=== PATIENT | male | born 1935 | race Caucasian/White ===

== ENCOUNTER → 2017-09-30 | Outpatient (CLI) | payer MEDICARE, OTHER | LOC: GMAM 11:46 | PROVIDERS: ATTEND Family Medicine | DX: Z12.5 Encounter for screening for malignant neoplasm of prostate (principal) ==

== ENCOUNTER → 2018-04-29 | Outpatient (CLI) | payer MEDICARE, OTHER | LOC: GMAM 14:38 | PROVIDERS: ATTEND Family Medicine | DX: R61 Generalized hyperhidrosis (principal); R53.82 Chronic fatigue, unspecified; E55.9 Vitamin D deficiency, unspecified ==

== ENCOUNTER → 2019-06-17 | Outpatient (CLI) | payer MEDICARE, OTHER | LOC: GMAM 11:05 | PROVIDERS: ATTEND Family Medicine | DX: E55.9 Vitamin D deficiency, unspecified (principal); I10 Essential (primary) hypertension; E11.9 Type 2 diabetes mellitus without complications ==

== ENCOUNTER → 2020-02-18 | Outpatient (CLI) | payer MEDICARE, OTHER | LOC: GMAM 10:24 | PROVIDERS: ATTEND Family Medicine | DX: Z12.5 Encounter for screening for malignant neoplasm of prostate (principal); E55.9 Vitamin D deficiency, unspecified; E78.2 Mixed hyperlipidemia; I10 Essential (primary) hypertension | CPT/HCPCS: 82306; G0103 ==

== ENCOUNTER → 2020-04-22 | Outpatient (CLI) | payer MEDICARE, OTHER | LOC: GMAM 10:47 | PROVIDERS: ATTEND Family Medicine | DX: R07.1 Chest pain on breathing (principal); I10 Essential (primary) hypertension ==

== ENCOUNTER → 2020-04-27 | Outpatient (CLI) | payer MEDICARE, OTHER | LOC: GMAM 14:27 | PROVIDERS: ATTEND Family Medicine | DX: I50.32 Chronic diastolic (congestive) heart failure (principal); R06.02 Shortness of breath ==

== ENCOUNTER 2020-05-05 15:26 | Observation (INO) | payer MEDICARE, OTHER ==
--- NOTE | 2020-05-05 15:30 | HP ---
SUPERVISING PHYSICIAN: Ga Dudley MD CHIEF COMPLAINT: Shortness of breath. HISTORY OF PRESENT ILLNESS: Mr. Patel is an 84-year-old male patient who has a history of congestive heart failure, type 2 diabetes mellitus, hypertension. He had been seen initially in the clinic on 04/23/[address] Dudley for some shortness of breath. He was worked up and started on cefdinir and given a shot of Rocephin for suspected pneumonia because he had a fever and also he saw a pleural effusion on x-ray and was diagnosed with new onset of atrial fibrillation and started on Eliquis. He was followed up on 04/27/20 and was feeling a little bit better after finishing his medications. He was still having some chest tightness, but no real bad shortness of breath. At that time, another x-ray was done and showed a pleural effusion on the left. He was then seen again on 04/29/20 for continued followup. His saturations were showing mid 90s on room air. His labs were fairly unremarkable. He was scheduled for echocardiogram and CT of the chest on 05/05/20. After he had the CT of the chest done, it was noted that he had a 40% left hydropneumothorax. At that point, Dr. Dudley notified the patient that he needed to be admitted for possible chest tube placement and at least evaluation overnight with some monitor to see if the pneumothorax would resolve. He was not in any distress at time of admission, having no chest pains, therefore, he was was placed in observation. He was placed in observation in the hospital in stable condition. PAST MEDICAL HISTORY: 1. Hyperlipidemia. 2. Prostate cancer. 3. Gastroesophageal reflux disease without esophagitis. 4. Chronic diastolic heart failure. 5. Type 2 diabetes mellitus. 6. Coronary artery disease. 7. Generalized anxiety disorder. 8. New onset of atrial fibrillation on Eliquis and metoprolol. PAST SURGICAL HISTORY: 1. Tonsillectomy. 2. Right total knee replacement. 3. Fractured mandible at age 40 requiring plates. HOME MEDICATIONS: 1. Sertraline 50 mg at bedtime. 2. Rosuvastatin 10 mg daily. 3. Potassium chloride 10 mEq daily. 4. Metoprolol succinate extended release 25 mg b.i.d. 5. Losartan 100 mg daily. 6. Lasix 40 mg daily. 7. Chlorthalidone 25 mg daily. 8. Eliquis 2.5 mg b.i.d. 9. Amlodipine 10 mg daily. ALLERGIES: NO KNOWN DRUG ALLERGIES. FAMILY HISTORY: Father at age 80 due to cerebrovascular accident. Mother at age 80 of natural causes. He has one sister who is and had history of arrhythmias who in her 70s with coronary artery disease. He has two sons who are healthy. SOCIAL HISTORY: The patient is employed at [employer]. He is . He has two children. He has a remote history of tobacco use in the form of smoking. He quit many years previously. He drinks on a rare occasion. REVIEW OF SYSTEMS: CONSTITUTIONAL: Denies any fevers, chills, general malaise, weakness or unexplained weight loss. HEENT: Denies headaches, vision changes, sore throats, earaches, nasal congestion. RESPIRATORY: As noted in history of present illness, some shortness of breath, a little bit of mild cough. CARDIOVASCULAR: Denies chest pain, palpitations or syncopal episodes. New onset of atrial fibrillation noted. No reported palpitations. GASTROINTESTINAL: Denies nausea, vomiting, diarrhea, constipation or abdominal pain. GENITOURINARY: Denies dysuria, hematuria, polyuria. MUSCULOSKELETAL: Denies any joint swelling, neck pain, back pain or arthralgias. SKIN: Denies lesions, rashes, moles or unexplained changes. NEUROLOGIC: Denies any ataxia, seizures, vision changes, headaches or other neuromotor focal deficits. HEMATOLOGIC: Denies unexplained bleeding, bruising or transfusion reactions. PHYSICAL EXAMINATION: VITAL SIGNS: Admission vital signs showed temperature 97.5, pulse 86, blood pressure 165/89, respirations 16, saturation 99% on 6 liters nasal cannula. Saturation 96% on room air. GENERAL: The patient is resting comfortably, not in any distress. He does have some pain when he takes a deep breath or coughs on the left side, but no active chest pain at rest. He is alert. HEENT: Tympanic membranes clear bilaterally. Oropharynx is pink, moist without any lesions. NECK: Supple, nontender with full range of motion. No jugular venous distention noted. RESPIRATORY: Right side lung sounds are fairly clear with no obvious rhonchi, wheezes or rales. Left side does have absent breath sounds in the lower bases, but he does have equal excursion of chest wall. No crepitus, no rhonchi. CARDIOVASCULAR: Slightly irregular rate and rhythm without any appreciable murmurs, gallops, or rubs. ABDOMEN: Soft, nontender. Positive bowel sounds. EXTREMITIES: There is no cyanosis, clubbing or edema. RECTAL: Deferred. BACK: No CVA tenderness, no vertebral tenderness. NEUROLOGIC: Cranial nerves II-XII are grossly intact. The patient is alert and oriented times three. SKIN: Warm, pink and dry. LABORATORY: White count 7,400, hemoglobin 11.4, hematocrit 34.3, platelet count 286,000. Differential is without a left shift. Coagulation studies showed PT 11, INR 1.11, PT 30.1. Chemistries show normal electrolytes, creatinine 1.2, glucose 118, calcium 8.1. Liver functions all within normal limits. He did have an elevated BNP of 754. MICROBIOLOGY: Nasal swab for COVID was negative. RADIOLOGY: CT of the chest done on admission prior to direct admit showed an approximate 40% left hydropneumothorax. Please see that report for details. ASSESSMENT: 1. Left sided hydropneumothorax, approximately 40%, with no current signs of respiratory distress, pending surgical consultation. 2. Chronic diastolic heart failure with no current echocardiogram available at time of admission. 3. New onset atrial fibrillation with a controlled ventricular rate on admission with the patient just started on Eliquis and metoprolol for rate control. 4. Hypertension. 5. Gastroesophageal reflux disease. 6. Type 2 diabetes mellitus. 7. Generalized anxiety disorder. PLAN: Mr. Patel is going to be placed in observation for surgical consultation with Dr. Black in regards to the hydropneumothorax on the left. He is not currently showing any respiratory distress. We are going to treat him conservatively with high concentration of oxygen to see if maybe this will reabsorb without placement of chest test. He will be on telemetry. We will follow labs as necessary. He will be on sliding scale insulin per protocol. He will be on Protonix for gastric protection. We will await Dr. Black's consultation. Until the patient can transition to outpatient management, we will continue to monitor and treat as needed. #[id number] [facility]
[2020-05-05] MEDS ORDERED: SODIUM CHLORIDE 0.9% (FLUSH) 10 ML SYG IV PRN (16:01)
[2020-05-05] MEDS ORDERED: ONDANSETRON INJ 4 MG/2 ML VIAL IV PRN (16:01)
[2020-05-05] MEDS ORDERED: DEXTROSE 50% 25 GM/50 ML SYG IV PRN (16:01)
[2020-05-05] MEDS ORDERED: GLUCAGON INJ 1 MG VIAL SUBCU PRN (16:01)
[2020-05-05] MEDS ORDERED: HYDROcodone 5MG/APAP 325MG 1 EA TAB PO PRN (16:01)
[2020-05-05] MEDS ORDERED: MORPHINE SULFATE INJ 10 MG/ML VIAL IV PRN (16:01)
[2020-05-05] MEDS ORDERED: ACETAMINOPHEN 325 MG TAB PO PRN (16:01)
[2020-05-05] MEDS ORDERED: IV SET AND CAP CHANGE INJ INJ SCH (16:30)
[2020-05-05] MEDS: INSULIN LISPRO 100 UNITS/ML PEN SUBCU SCH ×2 (16:50→21:02)
[2020-05-06] MEDS: INSULIN LISPRO 100 UNITS/ML PEN SUBCU SCH ×4 (06:59→20:53)
[2020-05-06] MEDS ORDERED: METOCLOPRAMIDE HCL INJ 10 MG/2 ML VIAL IV ONE (07:48)
[2020-05-06] MEDS ORDERED: METOPROLOL TARTRATE INJ 5 MG/5 ML VIAL IV ONE (07:53)
[2020-05-06] MEDS: POTASSIUM CHLORIDE 10 MEQ TAB PO SCH (07:56)
[2020-05-06] MEDS: FUROSEMIDE 40 MG TAB PO SCH (07:56)
[2020-05-06] MEDS: METOPROLOL SUCCINATE XL 25 MG TAB PO SCH ×2 (07:56→20:53)
[2020-05-06] MEDS: LOSARTAN POTASSIUM 100 MG TAB PO SCH (07:56)
[2020-05-06] MEDS: CHLORTHALIDONE 25 MG TAB PO SCH (07:56)
--- NOTE | 2020-05-06 08:00 | RAD ---
EXAM DESCRIPTION: Chest,2 Views CLINICAL HISTORY: Left sided pneumothorax COMPARISON: Chest CT May 05, 2020 FINDINGS: The left heart border is poorly visualized, the heart appears enlarged. Moderate size left-sided pneumothorax, no contralateral mediastinal shift. Moderate left-sided pleural effusion with overlying atelectasis or pneumonia in the left lung base. Small right-sided pleural effusion better seen on yesterday's chest CT. IMPRESSION: Left-sided hydropneumothorax without tension pneumothorax. Bilateral pleural effusions, larger on the left side with overlying atelectasis, pneumonia or edema in the lung bases. Electronically signed by: James Chavira MD 05/06/2020 7:58 AM [facility]
[2020-05-06] MEDS ORDERED: NON-FORMULARY MEDICATION 1 EA MIS (Amlodipine Besylate [Amlodipine Besylate] 10 MG) PO SCH (09:00)
--- NOTE | 2020-05-06 16:42 | PN ---
SUPERVISING PHYSICIAN: Ga Dudley MD DATE: 05/06/20 SUBJECTIVE: The patient actually reports this morning not having any difficulty breathing. He can take a big, deep breath without any pain. He has had no obvious chest pains. He has no other complaints. O2 saturations are still remaining well above 96%. The patient normally takes a beta ju. He has been diagnosed with new onset of atrial fibrillation and actually had an echocardiogram done prior to coming into the hospital yesterday. He has been on a beta ju and that was missed last night because his home medications did not get resolved and he did go into a slight atrial fibrillation with rapid ventricular response, but responded well to IV Lopressor and then oral metoprolol. He is not having any chest pains or increasing shortness of breath related to it. OBJECTIVE: VITAL SIGNS: Temperature 98.5, pulse 88, blood pressure 132/79, respirations 16, saturation 98-99% on 6 liters nasal cannula. GENERAL: The patient is resting comfortably without any distress or increasing respiratory efforts. CHEST: Lung sounds are fairly clear, just diminished again on the left. Not much changed from yesterday's assessment. HEART: Regular rate and rhythm with a tachy rhythm on monitor in the 120s. ABDOMEN: Soft, nontender. Positive bowel sounds. EXTREMITIES: No edema. NEUROLOGIC: Alert and oriented times three. LABORATORY: No additional laboratory studies other than blood sugars today because his labs were fairly normal yesterday. Blood sugars range between 105 and 119. MICROBIOLOGY: No new specimens. RADIOLOGY: EKG showed atrial fibrillation at 86 beats per minute with no obvious ST or T-wave changes to indicate acute ischemia. Prior to initiation of IV metoprolol along with p.o. metoprolol, he was showing rates around 120s to 140s. Chest x-ray this morning per radiologic interpretation showed left sided hydropneumothorax without tension pneumothorax. There are bilateral pleural effusions, large on the left side with overlying atelectasis, pneumonia or edema in the lung bases. ASSESSMENT: 1. Large left sided hydropneumothorax without tension pneumothorax, approximately 40% on CT scan with the patient currently on oxygen therapy. 2. Chronic diastolic heart failure with echocardiogram showing grade 1 diastolic dysfunction and ejection fraction approximately 55% with no signs of exacerbation on admission. 3. Atrial fibrillation with brief rapid ventricular response, responding to IV beta blockers and p.o. beta blockers, now controlled rate with the patient previously having been recently started on Eliquis and metoprolol for rate control. 4. Hypertension. 5. Gastroesophageal reflux disease. 6. Type 2 diabetes mellitus. 7. Generalized anxiety disorder. PLAN: The patient will remain in observation. I still have not talked to Dr. Black this morning. We will await Dr. Black's decision on whether or not the patient will need a chest tube placement or another [address] Palomares is cone operator today. He may actually see the patient, I am not real sure at this point, but we will await that decision. He does remain on telemetry. He is on nasal cannula at 6 liters to keep his O2 saturations above 96%. We need to avoid any pressure ventilation such as BiPAP or high flow nasal cannula at this point. He does remain on sliding scale insulin. He has been restarted back on his beta ju. He has good rate control. I have held his Eliquis awaiting decision on placement of chest tube or observation. Until the patient can transition to outpatient management, which hopefully will occur in the next 1 to 2 days versus having to be admitted for chest tube placement, we will continue to monitor and treat as needed. [facility][id number] [facility]
[2020-05-06] MEDS ORDERED: ATORVASTATIN 20 MG TAB PO SCH (21:00)
[2020-05-06] MEDS ORDERED: SERTRALINE HCL 50 MG TAB PO SCH (21:00)
[2020-05-07] MEDS: INSULIN LISPRO 100 UNITS/ML PEN SUBCU SCH ×2 (07:19→12:45)
[2020-05-07] MEDS ORDERED: amLODIPine BESYLATE 5 MG TAB ONE (07:29)
--- NOTE | 2020-05-07 07:29 | RAD ---
TECHNIQUE: Chest,1 View Chest radiograph, AP portable upright 1 view. HISTORY: MAIN Pneumothorax COMPARISON: Chest x-ray May 06, 2020. FINDINGS: Lungs/Pleura: 3.0 cm left pneumothorax which is approximately 15-20% is relatively unchanged compared to the prior. Moderate to large left pleural effusion which obscures the left lower half of the lung zone is relatively unchanged compared to the prior. There appears be some adjacent areas of subsegmental atelectasis which appear relatively unchanged. Small right pleural effusion with slightly blunted costophrenic angle stable. No right pneumothorax. No right consolidation. Mildly prominent bilateral pulmonary markings are unchanged. Mediastinum, Nikia: Aortic calcifications. Heart: Cardiac silhouette is stable compared to prior. Bones: No suspicious osseous lesions. Soft Tissues: Unremarkable. Other: None. IMPRESSION: * Stable left pneumothorax which is approximately 15-20%. * Moderate to large left pleural effusion with adjacent subsegmental atelectasis is relatively unchanged. Stable small right pleural effusion. * Stable mildly prominent bilateral pulmonary markings which may represent mild congestion. Differential diagnosis includes pneumonitis or pneumonia. Electronically signed by: Yogi Luciano 05/07/2020 7:27 AM [facility]
[2020-05-07] MEDS: POTASSIUM CHLORIDE 10 MEQ TAB PO SCH (07:55)
[2020-05-07] MEDS: METOPROLOL SUCCINATE XL 25 MG TAB PO SCH (07:58)
[2020-05-07] MEDS: CHLORTHALIDONE 25 MG TAB PO SCH (07:58)
[2020-05-07] MEDS: LOSARTAN POTASSIUM 100 MG TAB PO SCH (07:58)
[2020-05-07] MEDS: FUROSEMIDE 40 MG TAB PO SCH (07:58)
[2020-05-07] MEDS ORDERED: amLODIPine BESYLATE 5 MG TAB PO SCH (09:00)
[2020-05-07 13:31] VITALS: BP 138/76; TEMP 97.4; O2SAT 95
--- NOTE | 2020-05-07 15:16 | PN ---
DATE: 05/06/20 SUBJECTIVE: Patient here for observation of pneumothorax. He has no new complaints of chest pain, is not complaining of any dyspnea. The chest x-ray just shows left-sided hydropneumothorax without tension pneumothorax. We only have a CT scan to compare to so although the pneumo on my read does appear moderately significant, he actually is feeling much better so at this point, I think we can continue to observe and get another chest x-ray tomorrow which we can compare with today's x-ray and that will give us a better idea if it's progressing. At this point, he is stable and I do not anticipate him needing a chest tube. [facility][id number] [facility]
--- NOTE | 2020-05-07 15:19 | PN ---
DATE: 05/07/20 SUBJECTIVE: Patient is still feeling much better, he is out of bed and ready to go home to [facility]. Repeat chest x-ray reveals about a 15 to 20% pneumothorax, says it is relatively unchanged but the percentage is delineated whereas the previous film did not say. At this point, the patient is on room air, oxygen saturation well, he walked, he is not dyspneic, has no chest pain and with a 15 to 20% pneumo shows no signs of getting worse in 48 hours so he is stable and should be able to go home. I discussed with him what to look for and if there is any worsening in his condition, he should come back. He can start back on his Eliquis. #[id number] [facility]
--- NOTE | 2020-05-08 09:16 | CONS ---
DATE: 05/07/20 REASON FOR CONSULTATION: Left pneumothorax. HISTORY OF PRESENT ILLNESS: The patient was sent by his primary care physician after identifying the patient had a pneumothorax with a pleural effusion. The patient was sent by Dr. Dudley. The patient had been having some chest pains and shortness of breath over time and the initial evaluation did not show. He was also noted to have quite a few blebs from emphysema on the CT as well. He was stable on my initial exam. He had no pain. He looked well, felt well but was requiring oxygen. Evaluation of the CT showed what was reported as a 40% hydropneumothorax. The upper lobes seemed to be completely inflated and he was stable at the time so we opted at this time to watch him. I did not emergently do a chest tube. PAST MEDICAL HISTORY: 1. Prostate cancer. 2. Gastroesophageal reflux disease. 3. Heart failure. 4. Type 2 diabetes. 5. Coronary disease. 6. New onset atrial fibrillation, he is o Eliquis and metoprolol for that. ADDITIONAL MEDICATIONS: 1. Sertraline. 2. A statin. 3. Lasix. 4. Amlodipine. ALLERGIES: No known allergies. FAMILY HISTORY: He is , he lives with his . SOCIAL HISTORY: He smoked in the past. He denies any illicit habits at this time. REVIEW OF SYSTEMS: GENERAL: He denied any headache, visual changes, fevers, sore throat, cough or wheeze. His pain is getter. CHEST: No chest pain or palpitations. GI: No complaints. No nausea, vomiting, diarrhea. : No complaints. EXTREMITIES: No complaints. PHYSICAL EXAMINATION: VITAL SIGNS: He is afebrile, pulse in the 80s. Blood pressure 160/80, oxygen saturation 99% on 6 liters. GENERAL: He is conscious, alert and oriented and in no distress. HEENT: Normal. CHEST: Clear with diminished breath sounds on the left, no wheezes or crackles. ABDOMEN: Soft, non-tender. EXTREMITIES: No edema. LABORATORY: White count 70, hematocrit 34, platelet count 286,000. RADIOLOGY: CT of his chest which was done as an outpatient shows 40% left pneumothorax, smaller around the upper lobes, primarily inferior chest with some fluid, multiple blebs and bullae in the upper lung ledbetter and some pleural scarring. Otherwise, essentially normal. IMPRESSION: Left pneumothorax, likely from the ruptured bleb. At this point, the patient is stable with no evidence of advancing pneumo. No evidence of mediastinal shift. The decision is to continue him on oxygen, avoiding chest tube at this time and watch him closely. #[id number] [facility]
--- NOTE | 2020-05-14 11:43 | DS ---
SUPERVISING PHYSICIAN: Ga Dudley MD DISCHARGE DIAGNOSES: 1. Large left sided hydropneumothorax without tension pneumothorax, approximately 15 to 20% on x-ray today. It was 40% on CT scan yesterday. 2. Chronic diastolic heart failure with no current echocardiogram available at time of admission. 3. New onset atrial fibrillation with a controlled ventricular rate on admission with the patient just started on Eliquis and metoprolol for rate control. 4. Hypertension. 5. Gastroesophageal reflux disease. 6. Type 2 diabetes mellitus. 7. Generalized anxiety disorder. HISTORY OF PRESENT ILLNESS: This is an 84-year-old male patient who has a history of congestive heart failure, type 2 diabetes mellitus and hypertension. He was seen in the clinic on 04/23/[address] Dudley for some shortness of breath. He was started on cefdinir and given a shot of Rocephin at that time for suspected pneumonia. He also had a pleural effusion on x-ray and was diagnosed with new onset of atrial fibrillation and started on Eliquis. He was followed up on 04/27/20 and was feeling a some better. He still had some chest tightness, but no real shortness of breath. At that time, he had another x-ray and showed a pleural effusion on the left. He was then seen on 04/29/20 for followup. His saturations were in the mid 90s on room air. His labs were unremarkable. He was scheduled for echocardiogram and CT of the chest on 05/05/20. After the CT of the chest was done, it was noted that he had a 40% left hydropneumothorax. Dr. Dudley notified the patient that he needed to be admitted to the hospital for possible chest tube, or at least evaluation. He was in no distress at time of admission, he had no chest pain. He was was placed in the hospital in observation. HOSPITAL COURSE: Dr. Black was consulted in regards to the hydropneumothorax and the patient did not show any respiratory distress. He was treated conservatively with high concentration of oxygen overnight and hopefully it would reabsorb. He was monitored on telemetry. His home medications were restarted. Dr. Black felt it was best to treat him conservatively. He was again watched overnight. A chest x-ray was again performed and it revealed a 15 to 20% pneumothorax. The patient had been on high flow oxygen and was taken off and he tolerated room air without problems. He was walking in the hallways. Dr. Black felt he could be discharged home without any problems. The patient's oxygen saturations were maintaining at 95% on room air at rest. He walked in the halls frequently and showed no respiratory distress. He will be discharged home. LABORATORY: His CBC was unremarkable. His electrolytes were all within normal limits with the exception his calcium was slightly low at 8.1. BNP was elevated at 254 but showed no signs of exacerbation. Alkaline phosphatase was slightly high at 133. Covid swab was negative. Final chest x-ray showed stable left pneumothorax which was approximately 15 to 20%, moderate to large left pleural effusion with adjacent subsegmental atelectasis is relatively unchanged, stable small right pleural effusion. Stable mildly bilateral pulmonary markings which may represent mild congestion, differential diagnosis include pneumonitis or pneumonia. DISCHARGE PLAN: The patient will be discharged home in stable condition. He is to resume his previous diet and increase his activity as tolerated. He should have followup with his primary care physician, Dr. Dudley, within the next one to two weeks. He is to resume his previous home medications. There are no new medications to start. He is to return to the hospital or followup with Dr. Dudley for any problems or complications. DISCHARGE MEDICATIONS: 1. Losartan. 2. Sertraline. 3. Rosuvastatin. 4. Potassium chloride. 5. Metoprolol. 6. Furosemide. 7. Chlorthalidone. 8. Eliquis. 9. Amlodipine. #[id number] [facility]
== END 2020-05-07 13:50 | disposition home or self-care (01) ==
LOC: MS 15:26
PROVIDERS: ADMIT Nurse Practitioner Family; ATTEND Nurse Practitioner Acute Care
DX: J93.9 Pneumothorax, unspecified (principal); I11.0 Hypertensive heart disease with heart failure; I50.32 Chronic diastolic (congestive) heart failure; I48.91 Unspecified atrial fibrillation; K21.9 Gastro-esophageal reflux disease without esophagitis; E11.9 Type 2 diabetes mellitus without complications; F41.1 Generalized anxiety disorder; J90 Pleural effusion, not elsewhere classified; E78.5 Hyperlipidemia, unspecified; I25.10 Atherosclerotic heart disease of native coronary artery without angina pectoris; I08.1 Rheumatic disorders of both mitral and tricuspid valves; Z20.822 Contact with and (suspected) exposure to COVID-19; Z79.01 Long term (current) use of anticoagulants; Z79.899 Other long term (current) drug therapy; Z96.651 Presence of right artificial knee joint; Z85.46 Personal history of malignant neoplasm of prostate; Z87.891 Personal history of nicotine dependence
CPT/HCPCS: 96374; 80053; 82948 ×8; 36415 ×5; 85025; 85730; 85610; 83880; 36416 ×10; 82565; 71045; 71046; 71260; 94762; 93307; 93005; G0378; 87635